=== PATIENT | male | born 1960 | race Caucasian/White ===

== ENCOUNTER 2017-08-15 10:06 | Emergency (ER) | payer SELFPAY ==
--- NOTE | 2017-08-15 10:26 | ER Document Report ---
ED Medical Screen (RME) - General TRAVEL OUTSIDE OF THE U.S. IN LAST 30 DAYS: No <YAMILKA REIS - Last Filed: 08/15/17 10:22> <RENEE BETANCOURT - Last Filed: 08/15/17 11:08> - General Chief Complaint: Abdominal Pain Stated Complaint: ABDOMINAL PAIN Time Seen by Provider: 08/15/17 10:18 Notes: Patient is a 57 year old male presenting to the emergency department for abdominal pain x5 days. Patient states he has not had a bowel movement or passed any gas x5 days. Patient states he has tried OTC laxatives with no relief. Patient also has had weakness and lack of appetite. Patient states he has been induing vomiting and after he vomits he feels better. Patient denies any fevers. Patient smokes and drinks EtOH. Patient denies any history of abdominal surgeries or history of blockage. Patient does not have a PCP. (YAMILKA REIS) - Related Data Allergies/Adverse Reactions: No Known Allergies Allergy (Unverified 08/15/17 10:11) Past Medical History - Social History Cigarette use (# per day): Yes Chew tobacco use (# tins/day): No Frequency of alcohol use: Occasional Drug Abuse: None Renal/ Medical History: Denies: Hx Peritoneal Dialysis Surgical Hx: Negative - Immunizations Hx Diphtheria, Pertussis, Tetanus Vaccination: No History of Influenza Vaccine for 08/2017 - 01/2018 Season: Refused <YAMILKA REIS - Last Filed: 08/15/17 10:22> Physical Exam <YAMILKA REIS - Last Filed: 08/15/17 10:22> <RENEE BETANCOURT - Last Filed: 08/15/17 11:08> - Vital signs Vitals: Temp Pulse Resp BP Pulse Ox 98.0 F 93 18 136/77 H 96 08/15/17 10:12 08/15/17 10:12 08/15/17 10:12 08/15/17 10:12 08/15/17 10:12 - Notes Notes: GENERAL: Alert. No acute distress. ABDOMEN: Distended, minimal tenderness to the right side. No guarding or rigidity. (YAMILKA REIS) Course - Laboratory Result Diagrams: 08/15/17 10:31 08/15/17 10:31 <RENEE BETANCOURT - Last Filed: 08/15/17 11:08> - Vital Signs Vital signs: Temp Pulse Resp BP Pulse Ox 98.0 F 93 18 136/77 H 96 08/15/17 10:12 08/15/17 10:12 08/15/17 10:12 08/15/17 10:12 08/15/17 10:12 Scribe Documentation - Scribe Written by Scribe:: Louis Schultz 08/15/17 10:26 acting as scribe for :: Naif <YAMILKA REIS - Last Filed: 08/15/17 10:22>
[2017-08-15] MEDS ORDERED: NORMAL SALINE 1000 ML 1,000 ML IV ONE (10:35)
--- NOTE | 2017-08-15 10:35 | ER Document Report ---
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 Normally has 1 BM per day. No hx abdominal surgeries, crohns, diverticulitis, colitis. No nausea, induced vomiting due to acid feeling. No blood or black in stools. No hx cancer. TRAVEL OUTSIDE OF THE [place] IN LAST 30 DAYS: No - Related Data Allergies/Adverse Reactions: No Known Allergies Allergy (Unverified 08/15/17 10:11) Home Medications: Current Home Medications No Home Medications 08/15/17 [History] Past Medical History - General Information source: Patient - Social History Smoking Status: Current Every Day Smoker Cigarette use (# per day): Yes Chew tobacco use (# tins/day): No Frequency of alcohol use: Heavy - at least 6 beers daily Drug Abuse: None Occupation: construction Lives with: Family Family History: Reviewed & Not Pertinent Renal/ Medical History: Denies: Hx Peritoneal Dialysis Surgical Hx: Negative - Immunizations Hx Diphtheria, Pertussis, Tetanus Vaccination: No Review of Systems - Review of Systems Constitutional: See HPI EENT: No symptoms reported Cardiovascular: No symptoms reported Respiratory: No symptoms reported Gastrointestinal: See HPI Genitourinary: No symptoms reported Male Genitourinary: No symptoms reported Musculoskeletal: No symptoms reported Skin: No symptoms reported Hematologic/Lymphatic: No symptoms reported Neurological/Psychological: No symptoms reported Physical Exam - Vital signs Vitals: Temp Pulse Resp BP Pulse Ox 98.0 F 93 18 136/77 H 96 08/15/17 10:12 08/15/17 10:12 08/15/17 10:12 08/15/17 10:12 08/15/17 10:12 Interpretation: Normal - General General appearance: Alert In distress: None Notes: pale - HEENT Head: Normocephalic, Atraumatic Eyes: Normal Conjunctiva: Normal Pupils: PERRL Pharynx: Normal Neck: Supple. No: Lymphadenopathy - Respiratory Respiratory status: No respiratory distress Chest status: Nontender Breath sounds: Normal Chest palpation: Normal - Cardiovascular Rhythm: Regular Heart sounds: Normal auscultation Murmur: No - Abdominal Inspection: Normal Distension: Distended - but soft, Tympanitic. No: Fluid wave, Distended bladder Bowel sounds: Normal Tenderness: Nontender Organomegaly: No organomegaly. No: Hepatomegaly, Splenomegaly - Back Back: Normal, Nontender. No: CVA tenderness - Extremities General upper extremity: Normal inspection, Nontender, Normal color, Normal ROM , Normal temperature General lower extremity: Normal inspection, Nontender, Normal color, Normal ROM , Normal temperature, Normal weight bearing. No: Ryan's sign - Neurological Neuro grossly intact: Yes Cognition: Normal Orientation: AAOx4 [place] Coma Scale Eye Opening: Spontaneous Lisa Coma Scale Verbal: Oriented [place] Coma Scale Motor: Obeys Commands [place] Coma Scale Total: 15 Speech: Normal Motor strength normal: LUE, RUE, LLE, RLE Sensory: Normal - Psychological Associated symptoms: Normal affect, Normal mood - Skin Skin Temperature: Warm Skin Moisture: Dry Skin Color: Normal Skin irregularity: negative: Rash Course - Re-evaluation Re-evalutation: 08/15/17 11:16 pt has no history of anemia or blood transfusion. Stool for hemmocult sent to the lab. Liver enzymes elevated. Macrocytic anemia suspect thiamine deficiency and liver disease other labs added. Consult Dr. Bull, 2 units PRBC to be given. 08/15/17 12:09 stool hem negative 08/15/17 18:50 pt still complaining of some abdominal bloating but no pain. explained at length the follow up that he needs to do , and no alcohol. - Vital Signs Vital signs: Temp Pulse Resp BP Pulse Ox 99.5 F 70 23 H 174/84 H 99 08/15/17 17:37 08/15/17 13:25 08/15/17 17:30 08/15/17 17:30 08/15/17 17:30 - Laboratory Result Diagrams: 08/15/17 17:46 08/15/17 10:31 Laboratory results interpreted by me: 08/15/17 08/15/17 08/15/17 10:30 10:30 10:31 WBC 11.8 H RBC 2.10 L Hgb 7.6 L Hct 22.0 L MCV 105 H MCH 36.2 H RDW 14.5 H Plt Count 148 L Monocytes % 17.8 H Absolute Monocytes 2.1 H Retic Count (auto) 4.68 H PT Sodium Chloride Iron 11.5 L Ferritin 909.00 H Direct Bilirubin AST ALT Alkaline Phosphatase Albumin Urine Protein Urine Urobilinogen Ur Leukocyte Esterase Crossmatch 08/15/17 08/15/17 08/15/17 10:31 10:31 11:04 WBC RBC Hgb Hct MCV MCH RDW Plt Count Monocytes % Absolute Monocytes Retic Count (auto) PT 15.7 H Sodium 133.5 L Chloride 97 L Iron Ferritin Direct Bilirubin 0.8 H AST 276 H ALT 134 H Alkaline Phosphatase 134 H Albumin 3.2 L Urine Protein 30 H Urine Urobilinogen 4.0 H Ur Leukocyte Esterase TRACE H Crossmatch 08/15/17 08/15/17 11:23 17:46 WBC 10.6 H RBC 2.79 L Hgb 9.7 L D Hct 27.3 L MCV 98 H D MCH 34.8 H RDW 19.3 H Plt Count 126 L Monocytes % Absolute Monocytes Retic Count (auto) PT Sodium Chloride Iron Ferritin Direct Bilirubin AST ALT Alkaline Phosphatase Albumin Urine Protein Urine Urobilinogen Ur Leukocyte Esterase Crossmatch See Detail Discharge - Discharge Clinical Impression: elevated liver enzymes, Alcohol abuse, abominal pain Anemia Qualifiers: Anemia type: iron deficiency Iron deficiency anemia type: other iron deficiency Qualified Code(s): D50.8 - Other iron deficiency anemias Condition: Good Disposition: HOME, SELF-CARE Instructions: Abdominal Pain ([facility]), Anemia ([facility]) Additional Instructions: multivitamin daily over the counter iron 325mg daily see the Independent Living Instructor Doctor to fully evaluate the anemia see the Internal Medicine dr. Hernandez for follow up appointment tomorrow, call for appointment this week. to fully evaluate your liver enzyme elevation and other testing that may need to be done. copy of labs given to you DO NOT DRINK ALCOHOL ANYMORE No tylenol your liver enzymes are elevated which shows liver disease Please complete the patient satisfaction survey if you get one, and return it.. If you do not receive a survey, then you can go to the [facility] website, [email or web address] and place your comments about your very good care. Thank you very much. It was a pleasure being your medical provider today. Referrals: DEDE BECK MD [ACTIVE STAFF] - Follow up in 3-5 days NOE HERNANDEZ MD [ACTIVE STAFF] - 10/09/17 (call for ER follow up apptointment )
--- NOTE | 2017-08-15 10:48 | RADIOLOGY REPORT (SQ) ---
EXAM DESCRIPTION: ACUTE ABDOMEN SERIES COMPLETED DATE/TIME: 08/15/2017 10:40 am REASON FOR STUDY: no BM, no gas x 5 days COMPARISON: None. NUMBER OF VIEWS: Three views. TECHNIQUE: Frontal chest, supine abdomen and upright/decubitus abdomen radiographic images acquired. LIMITATIONS: None. FINDINGS: CHEST: Lungs clear of infiltrates. Small left pleural effusion versus pleural thickening. FREE AIR: None. No abnormal gas collections. BOWEL GAS PATTERN: Nonobstructive pattern. No dilated loops or air fluid levels. CALCIFICATIONS: No suspicious calcifications. HARDWARE: None in the abdomen. SOFT TISSUES: No gross mass or suggestion of organomegaly. BONES: No acute fracture. No worrisome bone lesions. OTHER: No other significant finding. IMPRESSION: NO RADIOGRAPHIC EVIDENCE FOR ACUTE ABDOMINAL DISEASE. SMALL LEFT PLEURAL EFFUSION VERSUS PLEURAL THICKENING. CORRELATE WITH RESPIRATORY SYMPTOMS. TECHNICAL DOCUMENTATION: JOB ID: [id number] [employer]- All Rights Reserved
[2017-08-15 10:58] LABS: ABSOLUTE BASOPHILS # (AUTO) 0.1 10^3/uL (0.0-0.2); ABSOLUTE MONOCYTES (AUTO) 2.1 10^3/uL (0.1-1.4); ABSOLUTE NEUT (AUTO) 7.6 10^3/uL (1.7-8.2); BASOPHILS % (AUTO) 0.5 % (0-2); EOSINOPHILS % (AUTO) 0.2 % (0-6); HGB HCT DIFFERENCE 0.8; MEAN CORPUSCULAR HEMOGLOBIN 36.2 pg (27.0-33.4); MEAN CORPUSCULAR HGB CONC 34.6 g/dL (32.0-36.0); MEAN CORPUSCULAR VOLUME 105 fl (80-97); MONOCYTES % (AUTO) 17.8 % (3-13); RED CELL DISTRIBUTION WIDTH 14.5 % (11.5-14.0); SEGMENTED NEUTROPHILS % (AUTO) 64.5 % (42-78); WHITE BLOOD COUNT 11.8 10^3/uL (4.0-10.5)
[2017-08-15 11:05] LABS: ALANINE AMINOTRANSFERASE 134 U/L (21-72); ALBUMIN 3.2 g/dL (3.5-5.0); ALKALINE PHOSPHATASE 134 U/L (38-126); ANION GAP 11 (5-19); ASPARTATE AMINO TRANSFERASE 276 U/L (17-59); BILIRUBIN,DIRECT 0.8 mg/dL (0.0-0.4); BILIRUBIN,TOTAL 1.3 mg/dL (0.2-1.3); BLOOD UREA NITROGEN 16 mg/dL (7-20); CALCIUM 9.8 mg/dL (8.4-10.2); CARBON DIOXIDE 26 mmol/L (22-30); CHLORIDE 97 mmol/L (98-107); CREATININE RESULT 1.24 mg/dL (0.52-1.25); GLUCOSE 110 mg/dL (75-110); LIPASE 63.1 U/L (23-300); POTASSIUM 4.4 mmol/L (3.6-5.0); SODIUM 133.5 mmol/L (137-145)
[2017-08-15 11:11] LABS: HEMOGLOBIN 7.6 g/dL (13.5-17.0)
[2017-08-15 11:19] LABS: APPEARANCE,URINE CLOUDY; BILIRUBIN,URINE NEGATIVE (NEGATIVE); GLUCOSE, URINE NEGATIVE (NEGATIVE); KETONES,URINE NEGATIVE (NEGATIVE); LEUKOCYTE ESTERASE,URINE TRACE (NEGATIVE); NITRITE,URINE NEGATIVE (NEGATIVE); PROTEIN,URINE 30 mg/dL (NEGATIVE); URINE SPECIFIC GRAVITY 1.018
[2017-08-15] MEDS ORDERED: THIAMINE HCL 100 MG TABLET PO ONE (11:21)
[2017-08-15] MEDS ORDERED: MULTIVITAMIN TABLET PO ONE (11:22)
[2017-08-15] MEDS ORDERED: NORMAL SALINE 250 ML IV PRN ×2 (11:24)
[2017-08-15 11:43] LABS: PROTHROMBIN TIME 15.7 SEC (11.4-15.4)
[2017-08-15 11:44] LABS: PARTIAL THROMBOPLASTIN TIME 28.5 SEC (23.5-35.8)
[2017-08-15 13:02] LABS: ALCOHOL < 10 mg/dL (NONE DETECTED)
[2017-08-15 18:08] LABS: HEMATOCRIT 27.3 % (37.9-51.0); HGB HCT DIFFERENCE 1.8; MEAN CORPUSCULAR HEMOGLOBIN 34.8 pg (27.0-33.4); MEAN CORPUSCULAR HGB CONC 35.6 g/dL (32.0-36.0); RED BLOOD COUNT 2.79 10^6/uL (4.35-5.55); RED CELL DISTRIBUTION WIDTH 19.3 % (11.5-14.0); WHITE BLOOD COUNT 10.6 10^3/uL (4.0-10.5)
[2017-08-15 18:09] LABS: HEMOGLOBIN 9.7 g/dL (13.5-17.0); MEAN CORPUSCULAR VOLUME 98 fl (80-97)
[2017-08-15 18:47] VITALS: BP 154/84
== END 2017-08-15 18:54 | disposition home or self-care (01) ==
LOC: ER 10:06
DX: R74.8 Abnormal levels of other serum enzymes (principal); F10.10 Alcohol abuse, uncomplicated; R10.9 Unspecified abdominal pain; D50.8 Other iron deficiency anemias; R14.0 Abdominal distension (gaseous); F17.210 Nicotine dependence, cigarettes, uncomplicated
CPT/HCPCS: 99284; 96360; 86900; 86901; 36415; 36430; 86850; 80307; 82607; 82728; 82746; 83540; 83550; 83690; 85025; 85027; 85610; 85730; 82272; 85045; 80053; 81001; 84466; 86920; 74022; P9016; J7030

== ENCOUNTER → 2017-09-27 | Outpatient (CLI) | payer OTHER ==
--- NOTE | 2017-09-27 14:43 | RADIOLOGY REPORT (SQ) ---
EXAM DESCRIPTION: CT ABD/PELVIS WITH IV ORAL COMPLETED DATE/TIME: 09/27/2017 2:25 pm REASON FOR STUDY: ABD PAIN (R10.9) R10.9 UNSPECIFIED ABDOMINAL PAIN COMPARISON: Abdominal series 08/15/2017 TECHNIQUE: CT scan of the abdomen and pelvis performed using helical scanning technique with dynamic intravenous contrast injection. Patient drank oral contrast. Images reviewed with lung, soft tissue, and bone windows. Reconstructed coronal and sagittal MPR images reviewed. Delayed images for evaluation of the urinary system also ac quired. All images stored on PACS. All CT scanners at this facility use dose modulation, iterative reconstruction, and/or weight based d osing when appropriate to reduce radiation dose to as low as reasonably achievable (ALARA). [facility]: Dose Right [facility]: CareDose [facility]: Dose Right [facility]: Teradose 4D [facility]: [employer] CONTRAST TYPE AND DOSE: contrast/concentration: Isovue 370.00 mg/ml; Total Contrast Delivered: 83.0 ml; Total Saline Delivered: 68.1 ml RENAL FUNCTION: Creatinine 1.3 RADIATION DOSE: Up-to-date CT equipment and radiation dose reduction techniques were employed. CTDIv ol: 8.0 - 9.2 mGy. DLP: 914 mGy-cm.. LIMITATIONS: None. FINDINGS: LOWER CHEST: Small bilateral pleural effusions are present. LIVER: Right lobe liver is diffusely abnormal, small and nodular in contour. In the sub- diaphragmat ic surface right lobe liver, an 8.4 cm mass is suspected worrisome for primary hepatocellular neoplas m. There is recanalization of the umbilical vein, and multiple varices in the left upper quadrant an d along the distal esophagus from portal hypertension. Normal contrast enhancement of the main zeeshan l vein and hepatic veins. SPLEEN: 12 cm in length. No focal lesions PANCREAS: No masses. No significant calcifications. No adjacent inflammation or peripancreatic fluid collections. Pancreatic duct not dilated. GALLBLADDER: Contracted around a 2 cm gallstone. ADRENAL GLANDS: No significant masses or asymmetry. RIGHT KIDNEY AND URETER: No solid masses. No significant calcifications. No hydronephrosis or hyd roureter. LEFT KIDNEY AND URETER: No solid masses. No significant calcifications. No hydronephrosis or hydr oureter. AORTA AND VESSELS: No aneurysm. No dissection. Renal arteries, SMA, celiac without stenosis. RETROPERITONEUM: No retroperitoneal adenopathy, hemorrhage or masses. BOWEL AND PERITONEAL CAVITY: No masses or inflammatory changes. Patient drank oral contrast, no pam l obstruction. Massive amount of ascites. APPENDIX: Normal. PELVIS: Ascites in the pelvis. No adenopathy. No masses ABDOMINAL WALL: No masses. No hernias. BONES: No significant or acute findings. OTHER: No other significant finding. IMPRESSION: Cirrhosis of the liver with 8 cm right lobe liver subdiaphragmatic surface mass worrisom e for hepatocellular neoplasm. Portal hypertension recannulized umbilical vein, esophageal varices and massive ascites These results were discussed with Dr. Simpson, 1430 hours, 09/27/2017 TECHNICAL DOCUMENTATION: JOB ID: [id number] Quality ID # [id number]: Final reports with documentation of one or more dose reduction techniques (e.g., Au tomated exposure control, adjustment of the mA and/or kV according to patient size, use of iterative reconstruction technique) 2010 [employer]- All Rights Reserved
== END ==
LOC: RAD 13:32
PROVIDERS: ATTEND Internal Medicine
DX: R10.9 Unspecified abdominal pain (principal)
CPT/HCPCS: 74177; 82565

== ENCOUNTER 2017-09-29 10:59 | Day surgery (SDC) | payer OTHER ==
[2017-09-29 11:53] LABS: HEMOGLOBIN 12.8 g/dL (13.5-17.0); HGB HCT DIFFERENCE 1.4; MEAN CORPUSCULAR HEMOGLOBIN 35.4 pg (27.0-33.4); MEAN CORPUSCULAR HGB CONC 34.7 g/dL (32.0-36.0); MEAN CORPUSCULAR VOLUME 102 fl (80-97); RED BLOOD COUNT 3.63 10^6/uL (4.35-5.55); RED CELL DISTRIBUTION WIDTH 15.1 % (11.5-14.0)
[2017-09-29 12:07] LABS: PROTHROMBIN TIME 14.3 SEC (11.4-15.4)
[2017-09-29 12:08] LABS: PARTIAL THROMBOPLASTIN TIME 27.7 SEC (23.5-35.8)
[2017-09-29 12:28] LABS: ANION GAP 11 (5-19); BLOOD UREA NITROGEN 21 mg/dL (7-20); CALCIUM 9.9 mg/dL (8.4-10.2); CARBON DIOXIDE 29 mmol/L (22-30); CHLORIDE 101 mmol/L (98-107); CREATININE RESULT 1.28 mg/dL (0.52-1.25); GLUCOSE 96 mg/dL (75-110); POTASSIUM 4.1 mmol/L (3.6-5.0); SODIUM 140.7 mmol/L (137-145)
--- NOTE | 2017-09-29 14:37 | RADIOLOGY REPORT (SQ) ---
EXAM DESCRIPTION: U/S ABD PARACENTESIS COMPLETED DATE/TIME: 09/29/2017 2:25 pm REASON FOR STUDY: ASCITES COMPARISON 09/27/2017 LIMITATIONS: None. PROCEDURE: After obtaining informed consent, the patient was brought to the ultrasound suite. The p rocedure was performed with the patient on a gurney. Ultrasound was used to identify a prominent poc ket of ascites in the right lower quadrant. An appropriate access site was selected. The patient wa s prepped and draped in usual sterile fashion. The access site was anesthetized with 5.5 mL 1% lido glenny. A [id number] needle was advanced into the fluid. After aspiration of fluid the needle, the catheter was advanced off the needle into the fluid. A total of 6,000 mL of clear yellow fluid w as removed. The patient tolerated the procedure well left the department in satisfactory condition. Ascites fluid was sent for cell count, albumin, g stain and culture IMPRESSION: Successful ultrasound-guided diagnostic and therapeutic paracentesis COMMENT: Patient medication list reviewed: Yes- Quality ID# [id number]:Eligible professional attests to doc umenting in the medical record they obtained, updated, or reviewed the patient's current medications. Quality ID #76: The patient was prepped and draped using maximum sterile barrier technique including cap, mask, sterile gown, sterile gloves, a large sterile sheet, hand hygiene, and 2% Chlorhexidine fo r cutaneous antisepsis. When ultrasound is used, sterile ultrasound techniques are followed requiring sterile gel and sterile probes. Quality ID #145: Final reports for procedures using fluoroscopy that document radiation exposure magui parvez, or exposure time and number of fluorographic images (if radiation exposure indices are not avail able) TECHNICAL DOCUMENTATION: JOB ID: [id number] [employer]- All Rights Reserved
[2017-09-29 15:03] LABS: FLUID APPEARANCE TURBID; FLUID TYPE PLEURAL; STAIN REACTIVITY CHECK ACCEPTABLE
[2017-09-29 15:04] LABS: FLUID RBC AVERAGE 50.5; FLUID RBC DILUENT USED SALINE; FLUID RBC DILUTION FACTOR 20; FLUID RBC SIDE 1 55; FLUID RBC SIDE 2 46; TOTAL RBC SQUARES COUNTED FLD 5
[2017-09-29 19:50] VITALS: BP 144/86
== END 2017-09-29 15:45 | disposition home or self-care (01) ==
LOC: RAD 10:59
PROVIDERS: ATTEND Internal Medicine
PROC: 0W9G3ZZ Drainage of Peritoneal Cavity, Percutaneous Approach (ICD-10-PCS; principal; 2017-09-29)
DX: R18.8 Other ascites (principal)
CPT/HCPCS: 36415; 49083; 80048; 82042; 85027; 85610; 85730; 87070; 87075; 87205; 88305; 89050

== ENCOUNTER 2017-10-02 13:17 | Emergency (ER) | payer OTHER ==
[2017-10-02] MEDS ORDERED: LIDOCAINE 1% INJ-PF (10 MG/ML) 30 ML SDV INJ ONE (13:48)
--- NOTE | 2017-10-02 13:48 | ER Document Report ---
ED Medical Screen (RME) - General Chief Complaint: Abdominal Problem Stated Complaint: ABDOMINAL PAIN Time Seen by Provider: 10/02/17 13:47 TRAVEL OUTSIDE OF THE [place]. IN LAST 30 DAYS: No - HPI Notes: 10/02/17 13:47 Leaking paracentesis site - Related Data Allergies/Adverse Reactions: No Known Allergies Allergy (Verified 10/02/17 13:22) Past Medical History - Past Medical History Cardiac Medical History: Denies: Hx Coronary Artery Disease, Hx Heart Attack, Hx Hypertension Pulmonary Medical History: Denies: Hx Asthma, Hx Bronchitis, Hx COPD, Hx Pneumonia Neurological Medical History: Denies: Hx Cerebrovascular Accident, Hx Seizures Renal/ Medical History: Denies: Hx Peritoneal Dialysis Musculoskeltal Medical History: Denies Hx Arthritis - Immunizations Hx Diphtheria, Pertussis, Tetanus Vaccination: No History of Influenza Vaccine for 08/2017 - 01/2018 Season: No Review of Systems - Review of Systems Notes: Leaking paracentesis site Physical Exam - Vital signs Vitals: Temp Pulse Resp BP Pulse Ox 97.3 F 76 16 138/87 H 98 10/02/17 13:20 10/02/17 13:20 10/02/17 13:20 10/02/17 13:20 10/02/17 13:20 - Abdominal Notes: Leaking paracentesis site Course - Vital Signs Vital signs: Temp Pulse Resp BP Pulse Ox 97.3 F 76 16 138/87 H 98 10/02/17 13:20 10/02/17 13:20 10/02/17 13:20 10/02/17 13:20 10/02/17 13:20
--- NOTE | 2017-10-02 15:06 | ER Document Report ---
ED General - General Chief Complaint: Abdominal Problem Stated Complaint: ABDOMINAL PAIN Time Seen by Provider: 10/02/17 13:47 Notes: 57-year-old male history of cirrhosis with frequent ascites issues had paracentesis done on Wednesday. Now leaking. Has been leaking for 2 days. Procedure was done at [facility] in the radiology department. Denies any fever, chills, sweats. Denies any abdominal pain. Soaking through all of his dressings on a regular basis. No active bleeding TRAVEL OUTSIDE OF THE [place] IN LAST 30 DAYS: No - HPI Onset: Yesterday Severity: None Associated symptoms: None Exacerbated by: Denies - Related Data Allergies/Adverse Reactions: No Known Allergies Allergy (Verified 10/02/17 13:22) Past Medical History - General Information source: Patient - Social History Smoking Status: Current Every Day Smoker Chew tobacco use (# tins/day): No Frequency of alcohol use: None Drug Abuse: None Lives with: Family Family History: Reviewed & Not Pertinent Patient has suicidal ideation: No Patient has homicidal ideation: No - Past Medical History Cardiac Medical History: Denies: Hx Coronary Artery Disease, Hx Heart Attack, Hx Hypertension Pulmonary Medical History: Denies: Hx Asthma, Hx Bronchitis, Hx COPD, Hx Pneumonia Neurological Medical History: Denies: Hx Cerebrovascular Accident, Hx Seizures Renal/ Medical History: Denies: Hx Peritoneal Dialysis Musculoskeltal Medical History: Denies Hx Arthritis - Immunizations Hx Diphtheria, Pertussis, Tetanus Vaccination: No Review of Systems - Review of Systems Constitutional: No symptoms reported Cardiovascular: No symptoms reported Respiratory: No symptoms reported Gastrointestinal: See HPI Skin: No symptoms reported Hematologic/Lymphatic: No symptoms reported Physical Exam - Vital signs Vitals: Temp Pulse Resp BP Pulse Ox 97.3 F 76 16 138/87 H 98 10/02/17 13:20 10/02/17 13:20 10/02/17 13:20 10/02/17 13:20 10/02/17 13:20 Interpretation: Normal - General General appearance: Appears well, Alert - HEENT Head: Normocephalic, Atraumatic Eyes: Normal Pupils: PERRL - Respiratory Respiratory status: No respiratory distress Chest status: Nontender Breath sounds: Normal Chest palpation: Normal - Cardiovascular Rhythm: Regular Heart sounds: Normal auscultation Murmur: No - Abdominal Inspection: Normal Distension: Distended Bowel sounds: Normal Tenderness: Nontender Organomegaly: No organomegaly Notes: Distended ascitic abdomen with a small 0.3 cm incision on the right mid abdomen which is leaking clear ascites fluid. No signs of cellulitis. Nontender abdomen. - Back Back: Normal, Nontender - Extremities General upper extremity: Normal inspection, Nontender, Normal color, Normal ROM , Normal temperature General lower extremity: Normal inspection, Nontender, Normal color, Normal ROM , Normal temperature, Normal weight bearing. No: Ryan's sign - Neurological Neuro grossly intact: Yes Cognition: Normal Orientation: AAOx4 Lisa Coma Scale Eye Opening: Spontaneous Lisa Coma Scale Verbal: Oriented [place] Coma Scale Motor: Obeys Commands [place] Coma Scale Total: 15 Speech: Normal Motor strength normal: LUE, RUE, LLE, RLE Sensory: Normal - Psychological Associated symptoms: Normal affect, Normal mood - Skin Skin Temperature: Warm Skin Moisture: Dry Skin Color: Normal Course - Re-evaluation Re-evalutation: 10/02/17 15:04 2 small simple interrupted sutures placed in a crossing fashion to close the leaking/draining lesion. Patient advised to stay on his back as much as possible over the next 12 hours. Lie on the left side so that the wound is upright which would decrease the chances of it leaking. Patient verbalized understanding of instructions. Advised him to return in 5 days for removal. - Vital Signs Vital signs: Temp Pulse Resp BP Pulse Ox 97.3 F 76 16 138/87 H 98 10/02/17 13:20 10/02/17 13:20 10/02/17 13:20 10/02/17 13:20 10/02/17 13:20 Procedures - Laceration/Wound Repair Right Mid- Abdomen Wound length (cm): 0.3 Wound's Depth, Shape: Superficial Laceration pre-procedure: Sterile drapes applied, Shur-Clens applied Anesthetic type: 1% Lidocaine Volume Anesthetic (mLs): 2 Wound explored: Clean Wound Repaired With: Sutures Suture Size/Type: 4:0, Ethilon Number of Sutures: 2 Layer Closure?: No Post-procedure wound care: Sterile dressing applied Discharge - Discharge Clinical Impression: Laceration Condition: Good Disposition: HOME, SELF-CARE Instructions: Laceration Care ([facility]) Additional Instructions: Return in 5-7 days for suture removal.
[2017-10-02 15:41] VITALS: BP 149/80
== END 2017-10-02 15:40 | disposition home or self-care (01) ==
LOC: ER 13:17
PROC: 0HQ7XZZ Repair Abdomen Skin, External Approach (ICD-10-PCS; principal; 2017-10-02)
DX: L76.82 Other postprocedural complications of skin and subcutaneous tissue (principal); R10.9 Unspecified abdominal pain; Y84.4 Aspiration of fluid as the cause of abnormal reaction of the patient, or of later complication, without mention of misadventure at the time of the procedure; F17.200 Nicotine dependence, unspecified, uncomplicated
CPT/HCPCS: 99283; 12001; J3490

== ENCOUNTER 2017-10-10 15:57 | Emergency (ER) | payer OTHER ==
--- NOTE | 2017-10-10 16:51 | ER Document Report ---
ED Suture/Wound Recheck - General Chief Complaint: Suture Removal Stated Complaint: SUTURES REMOVAL Time Seen by Provider: 10/10/17 16:21 Mode of Arrival: Ambulatory Information source: Patient Notes: 57-year-old male presents to ED for suture removal to his left lower abdomen. Patient states he was seen at radiology for paracentesis due to ascites from his cirrhosis and they removed 6 L from his abdomen. He states 2 days later the drain site opened back up and started leaking and he came to the emergency room for sutures. The sutures are well healed and there is no signs of inflammation redness or drainage at the site at this time. He does have a very large taut abdomen. Patient states that when he had the last paracentesis his abdomen was actually much larger than it is today. He states he has a history of cirrhosis with ascites. TRAVEL OUTSIDE OF THE [place] IN LAST 30 DAYS: No - HPI Previous ED treatment: Closure of leaking drain site Quality of pain: Other - Abdomen taunt, and no pain at suture site Severity: Mild Context: Other - Drain for ascites started leaking was sutured shut Symptoms since procedure: No complaints Exacerbated by: Denies Relieved by: Denies - Related Data Allergies/Adverse Reactions: No Known Allergies Allergy (Verified 10/02/17 13:22) Past Medical History - General Information source: Patient, Relative - Social History Smoking Status: Current Every Day Smoker Cigarette use (# per day): Yes Smoking Education Provided: Yes - Less than 1 minute Frequency of alcohol use: None Drug Abuse: None Occupation: not able to work Lives with: Family Family History: Reviewed & Not Pertinent Patient has suicidal ideation: No Patient has homicidal ideation: No - Past Medical History Cardiac Medical History: Reports: None Pulmonary Medical History: Reports: None EENT Medical History: Reports: None Neurological Medical History: Reports: None Endocrine Medical History: Reports: None Renal/ Medical History: Reports: None Malignancy Medical History: Reports None GI Medical History: Reports: Hx Cirrhosis, Other - Ascites Musculoskeltal Medical History: Reports None Skin Medical History: Reports None Psychiatric Medical History: Reports: None Traumatic Medical History: Reports: None Past Surgical History: Reports: Other - Paracentesis due to ascites from cirrhosis - Immunizations Hx Diphtheria, Pertussis, Tetanus Vaccination: No Review of Systems - Review of Systems Constitutional: No symptoms reported EENT: No symptoms reported Cardiovascular: No symptoms reported Respiratory: No symptoms reported Gastrointestinal: Abdomen distended, Constipation Genitourinary: No symptoms reported Male Genitourinary: No symptoms reported Musculoskeletal: No symptoms reported Skin: Other - Wound well-healed no drainage no redness no inflammation Hematologic/Lymphatic: No symptoms reported Neurological/Psychological: No symptoms reported -: Yes All other systems reviewed and negative Physical Exam - Vital signs Vitals: Pulse BP Pulse Ox 93 135/88 H 99 10/10/17 16:03 10/10/17 16:03 10/10/17 16:03 Interpretation: Normal - General General appearance: Appears well, Alert - HEENT Head: Normocephalic, Atraumatic Eyes: Normal Pupils: PERRL - Respiratory Respiratory status: No respiratory distress Chest status: Nontender Breath sounds: Normal Chest palpation: Normal - Cardiovascular Rhythm: Regular Heart sounds: Normal auscultation Murmur: No - Abdominal Inspection: Normal Distension: Distended Bowel sounds: Normal Tenderness: Tender - Back Back: Normal, Nontender - Extremities General upper extremity: Normal inspection, Nontender, Normal color, Normal ROM , Normal temperature General lower extremity: Normal inspection, Nontender, Normal color, Normal ROM , Normal temperature, Normal weight bearing. No: Ryan's sign - Neurological Neuro grossly intact: Yes Cognition: Normal Orientation: AAOx4 [place] Coma Scale Eye Opening: Spontaneous [place] Coma Scale Verbal: Oriented [place] Coma Scale Motor: Obeys Commands Lisa Coma Scale Total: 15 Speech: Normal Motor strength normal: LUE, RUE, LLE, RLE Sensory: Normal - Psychological Associated symptoms: Normal affect, Normal mood - Skin Skin Temperature: Warm Skin Moisture: Dry Skin Color: Normal Skin irregularity: other - 3 sutures to the right lower abdomen removed, no redness no inflammation no leaking. Skin well approximated. Sutures removed and patient was discharged home with instructions to follow-up with [facility] by telephone tomorrow to schedule follow-up appointment for his ascites. Location of irregularity: Abdomen Course - Re-evaluation Re-evalutation: 10/10/17 17:04 Sutures removed from lower abdomen Band-Aid applied with 2 x 2's. 10/10/17 17:[address] Garcia concerning the appearance of his abdomen. He stated that if the patient was not here for his abdomen but here for the suture removal that the patient follow-up with his primary doctor tomorrow. Patient was instructed to call Dr. lb fiore in the morning to schedule follow-up appointment. - Vital Signs Vital signs: Temp Pulse Resp BP Pulse Ox 97.3 F 76 138/87 H 100 10/10/17 17:03 10/10/17 17:03 10/10/17 17:03 10/10/17 17:03 Discharge - Discharge Clinical Impression: Suture removal right abdomen Condition: Stable Disposition: HOME, SELF-CARE Instructions: Suture Removal Additional Instructions: Removed his sutures from the abdomen today from your last paracentesis. Your abdomen is very taunt in full. You need to follow-up with Dr. Beck by telephone tomorrow and schedule an appointment as soon as possible. He also states you have some constipation but have had a bowel movement today. Please be sure to call [facility] in the morning and schedule a follow-up appointment to possibly have your abdomen retrained again. When you follow-up with [facility] please let him know that you needed sutures after your last procedure. FOLLOW-UP CARE: If you have been referred to a physician for follow-up care, call the physician s office for an appointment as you were instructed or within the next two days. If you experience worsening or a significant change in your symptoms, notify the physician immediately or return to the Emergency Department at any time for re-evaluation. Forms: Elevated Blood Pressure, Smoking Cessation Education Referrals: DEDE BECK MD [ACTIVE STAFF] - Follow up as needed
[2017-10-10 17:05] VITALS: BP 138/87
== END 2017-10-10 17:05 | disposition home or self-care (01) ==
LOC: ER 15:57
DX: Z48.02 Encounter for removal of sutures (principal)

== ENCOUNTER 2017-10-20 07:40 | Day surgery (SDC) | payer OTHER ==
[2017-10-20 08:17] LABS: HEMATOCRIT 38.5 % (37.9-51.0); HEMOGLOBIN 13.2 g/dL (13.5-17.0); HGB HCT DIFFERENCE 1.1; MEAN CORPUSCULAR HEMOGLOBIN 35.2 pg (27.0-33.4); MEAN CORPUSCULAR HGB CONC 34.2 g/dL (32.0-36.0); MEAN CORPUSCULAR VOLUME 103 fl (80-97); RED BLOOD COUNT 3.75 10^6/uL (4.35-5.55); RED CELL DISTRIBUTION WIDTH 14.5 % (11.5-14.0); WHITE BLOOD COUNT 6.5 10^3/uL (4.0-10.5)
[2017-10-20 08:22] LABS: PROTHROMBIN TIME 14.7 SEC (11.4-15.4)
[2017-10-20 08:23] LABS: PARTIAL THROMBOPLASTIN TIME 30.4 SEC (23.5-35.8)
[2017-10-20 08:29] LABS: BLOOD UREA NITROGEN 22 mg/dL (7-20); CREATININE RESULT 1.45 mg/dL (0.52-1.25)
[2017-10-20] MEDS ORDERED: ALBUMIN HUMAN 300 ML IV PRN (11:19)
--- NOTE | 2017-10-20 13:31 | RADIOLOGY REPORT (SQ) ---
EXAM DESCRIPTION: U/S ABD PARACENTESIS COMPLETED DATE/TIME: 10/20/2017 10:59 am REASON FOR STUDY: ASCITES COMPARISON CT abdomen pelvis 09/27/2017 Paracentesis 09/29/2017 LIMITATIONS: None. PROCEDURE: After obtaining informed consent, the patient was brought to the ultrasound suite. The p rocedure was performed with the patient on a gurney. Ultrasound was used to identify a prominent poc ket of ascites in the left lower quadrant. An appropriate access site was selected. The patient was prepped and draped in usual sterile fashion. The access site was anesthetized with 7 mL 1% lidocai ne. A Uqdr-S-Ccddsfzw needle was advanced into the fluid. After aspiration of fluid the needle, the catheter was advanced off the needle into the fluid. A total of 10,000 mL of cloudy straw-colored f luid was removed. The patient tolerated the procedure well left the department in satisfactory condit ion. Patient received IV albumin infusion after the paracentesis. No specimens were sent to the lab IMPRESSION: Successful ultrasound-guided therapeutic paracentesis, with postprocedure albumin infusi on COMMENT: Patient medication list reviewed: Yes- Quality ID# [id number]:Eligible professional attests to doc umenting in the medical record they obtained, updated, or reviewed the patient's current medications. Quality ID #[id number]: The patient was prepped and draped using maximum sterile barrier technique including cap, mask, sterile gown, sterile gloves, a large sterile sheet, hand hygiene, and 2% Chlorhexidine fo r cutaneous antisepsis. When ultrasound is used, sterile ultrasound techniques are followed requiring sterile gel and sterile probes. Quality ID #[id number]: Final reports for procedures using fluoroscopy that document radiation exposure magui parvez, or exposure time and number of fluorographic images (if radiation exposure indices are not avail able) TECHNICAL DOCUMENTATION: JOB ID: [id number] [employer]- All Rights Reserved
[2017-10-20 15:33] VITALS: BP 128/80
== END 2017-10-20 15:24 | disposition home or self-care (01) ==
LOC: RAD 07:40
PROVIDERS: ATTEND Internal Medicine
PROC: 0W9G3ZZ Drainage of Peritoneal Cavity, Percutaneous Approach (ICD-10-PCS; principal; 2017-10-20)
DX: C22.0 Liver cell carcinoma (principal); K74.60 Unspecified cirrhosis of liver; B19.20 Unspecified viral hepatitis C without hepatic coma
CPT/HCPCS: 36415; 84520; 82565; 85027; 85610; 85730; 49083; P9047

== ENCOUNTER → 2017-10-22 | Outpatient (CLI) | payer OTHER ==
--- NOTE | 2017-10-23 20:40 | RADIOLOGY REPORT (SQ) ---
EXAM DESCRIPTION: MRI ABDOMEN COMBO COMPLETED DATE/TIME: 10/22/2017 9:42 pm REASON FOR STUDY: Liver cell carcinoma C22.0 LIVER CELL CARCINOMA COMPARISON: 09/27/2017 CT. TECHNIQUE: T1, T1 in and out of phase, T2 fat sat, T1 post gadolinium sequences with attention to th e liver. CONTRAST TYPE AND DOSE: 20 mL Prohance. RENAL FUNCTION: GFR 50 LIMITATIONS: None. FINDINGS: LIVER: Nodular appearance. Pre contrast imaging shows heterogeneous slightly hyperintense T2 signal throughout the dome of the liver, some of which is in the mass noted on CT. Superior port ion of this masslike area is more nodular compared to the adjacent parenchyma. T2 sequences in parti cular suggests that the area it is larger than measured on CT. Probably nearly 12 cm maximal transve rse dimension involving a large portion of the right hepatic lobe and a portion of the medial segment left hepatic lobe. Heterogeneous enhancement with some washout throughout this area. Several other right hepatic lobe lesions may also be present (At least 3, the largest of which is inferiorly and m easures 2.9 cm maximally). Most of these also show increased T2 signal with variable enhancement. A t least 1 1.3 cm lesion in the lateral segment left hepatic lobe, otherwise much less heterogeneous i n appearance compared to the right lobe. These areas are all marked as morales images in PACS for future review. SPLEEN: Mildly heterogeneous enhancement. No dominant mass. Relatively normal size. PANCREAS: No masses. No adjacent inflammation or peripancreatic fluid collections. Pancreatic duct no t dilated. GALLBLADDER: No masses. No stones. No gallbladder wall thickening or pericholecystic fluid. ADRENAL GLANDS: No significant masses or asymmetry. RIGHT KIDNEY AND URETER: No masses. No hydronephrosis. LEFT KIDNEY AND URETER: No masses. No hydronephrosis. AORTA AND VESSELS: Normal caliber aorta. Portal and hepatic veins look grossly patent. RETROPERITONEUM: No retroperitoneal adenopathy, hemorrhage or masses. BOWEL: No visualized masses. No inflammation. No significant dilatation. ABDOMINAL WALL AND PERITONEUM: Large volume ascites. No abdominal wall mass. Small to moderate bila teral pleural effusions. BONES: No acute or significant findings. OTHER: No other significant finding. IMPRESSION: 1. Extensively abnormal cirrhotic liver. A large portion of the right hepatic lobe appe ars to be involved with a heterogeneous mass with variable enhancement. This extends to involve the left hepatic lobe medial segment as well. Several additional lesions are also noted, right lobe and at least 1 in the lateral segment left lobe. Large volume ascites. TECHNICAL DOCUMENTATION: JOB ID: [id number] [employer]- All Rights Reserved
== END ==
LOC: RAD 19:46
PROVIDERS: ATTEND Internal Medicine
DX: C22.0 Liver cell carcinoma (principal); R18.8 Other ascites
CPT/HCPCS: 74183

== ENCOUNTER 2017-11-16 07:30 | Day surgery (SDC) | payer OTHER ==
[2017-11-16 08:40] LABS: HEMOGLOBIN 12.1 g/dL (13.5-17.0); MEAN CORPUSCULAR HEMOGLOBIN 34.3 pg (27.0-33.4); MEAN CORPUSCULAR HGB CONC 33.6 g/dL (32.0-36.0); MEAN CORPUSCULAR VOLUME 102 fl (80-97); PLATELET COUNT 239 10^3/uL (150-450); RED BLOOD COUNT 3.53 10^6/uL (4.35-5.55); RED CELL DISTRIBUTION WIDTH 14.5 % (11.5-14.0); WHITE BLOOD COUNT 6.1 10^3/uL (4.0-10.5)
[2017-11-16 08:44] LABS: INTERNATIONAL RATION (INR) 1.03; PROTHROMBIN TIME 14.2 SEC (11.4-15.4)
[2017-11-16 08:45] LABS: PARTIAL THROMBOPLASTIN TIME 29.2 SEC (23.5-35.8)
[2017-11-16 08:52] LABS: BLOOD UREA NITROGEN 46 mg/dL (7-20)
[2017-11-16] MEDS ORDERED: ALBUMIN HUMAN 100 ML IV PRN (11:28)
--- NOTE | 2017-11-16 13:14 | RADIOLOGY REPORT (SQ) ---
EXAM DESCRIPTION: U/S ABD PARACENTESIS COMPLETED DATE/TIME: 11/16/2017 12:08 pm REASON FOR STUDY: ASCITES COMPARISON MRI abdomen 10/22/2017 Paracentesis 10/20/2017 LIMITATIONS: None. PROCEDURE: After obtaining informed consent, the patient was brought to the ultrasound suite. The p rocedure was performed with the patient on a gurney. Ultrasound was used to identify a prominent poc ket of ascites in the right lower quadrant. An appropriate access site was selected. The patient wa s prepped and draped in usual sterile fashion. The access site was anesthetized with 5.5 mL 1% lido glenny. A Ftmc-U-Xasavwuh needle was advanced into the fluid. After aspiration of fluid the needle, the catheter was advanced off the needle into the fluid. A total of 10,000 mL of clear straw colored fluid was removed. The patient tolerated the procedure well left the department in satisfactory cond ition. IMPRESSION: Successful ultrasound-guided therapeutic only paracentesis COMMENT: Patient medication list reviewed: Yes- Quality ID# [id number]:Eligible professional attests to doc umenting in the medical record they obtained, updated, or reviewed the patient's current medications. Quality ID #76: The patient was prepped and draped using maximum sterile barrier technique including cap, mask, sterile gown, sterile gloves, a large sterile sheet, hand hygiene, and 2% Chlorhexidine fo r cutaneous antisepsis. When ultrasound is used, sterile ultrasound techniques are followed requiring sterile gel and sterile probes. Quality ID #[id number]: Final reports for procedures using fluoroscopy that document radiation exposure magui parvez, or exposure time and number of fluorographic images (if radiation exposure indices are not avail able) TECHNICAL DOCUMENTATION: JOB ID: [id number] [employer]- All Rights Reserved
[2017-11-16 13:51] VITALS: BP 133/68
== END 2017-11-16 13:30 | disposition home or self-care (01) ==
LOC: RAD 07:30
PROVIDERS: ATTEND Internal Medicine
PROC: 0W9F3ZZ Drainage of Abdominal Wall, Percutaneous Approach (ICD-10-PCS; principal; 2017-11-16)
DX: R18.8 Other ascites (principal)
CPT/HCPCS: 36415; 84520; 82565; 85027; 85610; 85730; 49083; P9047

== ENCOUNTER 2017-12-18 11:04 | Emergency (ER) | payer MEDICAID, OTHER ==
[2017-12-18] MEDS ORDERED: DEXTROSE 50%-WATER 25 GM/50 ML DISP.SYRIN IV ONE ×2 (11:22→12:12)
[2017-12-18] MEDS ORDERED: ONDANSETRON HCL INJ/PF 4 MG/2 ML SDV ONE (11:38)
[2017-12-18] MEDS ORDERED: DEXTROSE 5%-1/2 NORMAL SALINE 500 ML IV ONE (12:12)
[2017-12-18] MEDS ORDERED: ONDANSETRON HCL INJ/PF 4 MG/2 ML SDV IV ONE (12:12)
--- NOTE | 2017-12-18 12:43 | RADIOLOGY REPORT (SQ) ---
EXAM DESCRIPTION: CHEST SINGLE VIEW COMPLETED DATE/TIME: 12/18/2017 12:18 pm REASON FOR STUDY: bed 10 db COMPARISON: None. EXAM PARAMETERS: NUMBER OF VIEWS: One view. TECHNIQUE: Single frontal radiographic view of the chest acquired. RADIATION DOSE: NA LIMITATIONS: None. FINDINGS: LUNGS AND PLEURA: Basilar atelectasis with pleural effusions. MEDIASTINUM AND HILAR STRUCTURES: No masses. Contour normal. HEART AND VASCULAR STRUCTURES: Heart normal in size. Normal vasculature. BONES: No acute findings. HARDWARE: None in the chest. OTHER: No other significant finding. IMPRESSION: BASILAR ATELECTASIS WITH PLEURAL EFFUSIONS. TECHNICAL DOCUMENTATION: JOB ID: [id number] [employer]- All Rights Reserved
[2017-12-18 12:50] LABS: HEMATOCRIT 38.8 % (37.9-51.0); HEMOGLOBIN 13.3 g/dL (13.5-17.0); MEAN CORPUSCULAR HEMOGLOBIN 34.3 pg (27.0-33.4); MEAN CORPUSCULAR HGB CONC 34.4 g/dL (32.0-36.0); MEAN CORPUSCULAR VOLUME 100 fl (80-97); PLATELET COUNT 142 10^3/uL (150-450); RED BLOOD COUNT 3.89 10^6/uL (4.35-5.55); RED CELL DISTRIBUTION WIDTH 14.2 % (11.5-14.0)
[2017-12-18] MEDS ORDERED: LIDOCAINE 2% URO-JET 5 ML KIT MM ONE ×2 (12:52→12:59)
[2017-12-18 12:56] LABS: VENOUS BLOOD BASE EXCESS 0.8 mmol/L; VENOUS BLOOD HCO3 23.3 mmol/L (20-32); VENOUS BLOOD PCO2 30.9 mmHg (35-63); VENOUS BLOOD PH 7.5 (7.30-7.42)
[2017-12-18 12:59] LABS: INTERNATIONAL RATION (INR) 1.27; PROTHROMBIN TIME 16.8 SEC (11.4-15.4)
[2017-12-18 13:00] LABS: PARTIAL THROMBOPLASTIN TIME 31.6 SEC (23.5-35.8)
[2017-12-18 13:12] LABS: ABSOLUTE LYMPHOCYTES# (MANUAL) 0.7 10^3/uL (0.5-4.7); ABSOLUTE MONOCYTES # (MANUAL) 0.2 10^3/uL (0.1-1.4); ALANINE AMINOTRANSFERASE 86 U/L (21-72); ALBUMIN 2.7 g/dL (3.5-5.0); ALKALINE PHOSPHATASE 391 U/L (38-126); ANION GAP 18 (5-19); ASPARTATE AMINO TRANSFERASE 153 U/L (17-59); BASOPHILS % (MANUAL) 0 % (0-2); BILIRUBIN,DIRECT 1.2 mg/dL (0.0-0.4); BILIRUBIN,TOTAL 1.3 mg/dL (0.2-1.3); CALCIUM 9.2 mg/dL (8.4-10.2); CARBON DIOXIDE 23 mmol/L (22-30); CHLORIDE 86 mmol/L (98-107); CREATINE KINASE 56 U/L (55-170); EOSINOPHILS % (MANUAL) 0 % (0-6); GLUCOSE 183 mg/dL (75-110); LYMPHOCYTES % (MANUAL) 11 % (13-45); MONOCYTES % (MANUAL) 4 % (3-13); POTASSIUM 5.6 mmol/L (3.6-5.0); SEGMENTED NEUTROPHILS % (MAN) 84 % (42-78); SODIUM 127.1 mmol/L (137-145); TOTAL CELLS COUNTED 100; TOTAL PROTEIN 6.7 g/dL (6.3-8.2)
[2017-12-18 13:13] LABS: POIKILOCYTOSIS 1+
[2017-12-18 13:14] LABS: PLATELET COMMENT ADEQUATE; TARGET CELLS 1+
[2017-12-18 13:20] LABS: BLOOD UREA NITROGEN 144 mg/dL (7-20)
--- NOTE | 2017-12-18 13:37 | ER Document Report ---
ED General - General Chief Complaint: Pain Stated Complaint: WEAKNESS Time Seen by Provider: 12/18/17 12:01 Notes: The patient is a 57-year-old male, past medical history stage IV liver cancer, recurrent ascites, presents by EMS after he was having increased generalized weakness and shortness of breath. He feels like his ascites is worsening and his last paracentesis was about 1 month ago where he had 7 L tapped off. Pt receives intermittent oral chemo and is followed by Dr. Beck. Pt's accucheck on arrival by EMS was in the 30's. He was given an amp of D50 and his Accu-Chek improved to 71. Patient is not eating or drinking due to increased abdominal pain. TRAVEL OUTSIDE OF THE [place] IN LAST 30 DAYS: No - Related Data Allergies/Adverse Reactions: No Known Allergies Allergy (Verified 10/20/17 07:54) Past Medical History - General Information source: Patient, Relative - Daughter - Social History Smoking Status: Never Smoker Chew tobacco use (# tins/day): No Frequency of alcohol use: None Drug Abuse: None Family History: Reviewed & Not Pertinent Patient has suicidal ideation: No Patient has homicidal ideation: No - Past Medical History Cardiac Medical History: Denies: Hx Coronary Artery Disease, Hx Heart Attack, Hx Hypertension Pulmonary Medical History: Reports: Hx Asthma - Asthma Denies: Hx Bronchitis, Hx COPD, Hx Pneumonia Neurological Medical History: Denies: Hx Cerebrovascular Accident, Hx Seizures Renal/ Medical History: Denies: Hx Peritoneal Dialysis GI Medical History: Reports: Hx Cirrhosis Musculoskeltal Medical History: Denies Hx Arthritis Past Surgical History: Reports: Other - Paracentesis due to ascites from cirrhosis - Immunizations Hx Diphtheria, Pertussis, Tetanus Vaccination: - Unsure Review of Systems - Review of Systems Notes: REVIEW OF SYSTEMS: CONSTITUTIONAL: -fevers, -chills EENT: -eye pain, -difficulty swallowing, -nasal congestion CARDIOVASCULAR: -chest pain, -syncope. RESPIRATORY: -cough, +SOB GASTROINTESTINAL: +abdominal pain, -nausea, -vomiting, -diarrhea GENITOURINARY: -dysuria, -hematuria MUSCULOSKELETAL: -back pain, -neck pain SKIN: -rash or skin lesions. HEMATOLOGIC: -easy bruising or bleeding. LYMPHATIC: -swollen, enlarged glands. NEUROLOGICAL: -altered mental status or loss of consciousness, -headache, - neurologic symptoms PSYCHIATRIC: -anxiety, -depression. ALL OTHER SYSTEMS REVIEWED AND NEGATIVE. Physical Exam - Vital signs Vitals: Resp 23 H 12/18/17 11:12 - Notes Notes: PHYSICAL EXAMINATION: GENERAL: Cachectic-looking. No acute distress. HEAD: Atraumatic, normocephalic. EYES: Pupils equal round and reactive to light, extraocular movements intact, sclera icteric, conjunctiva are normal. ENT: nares patent, oropharynx clear without exudates. Moist mucous membranes. NECK: Normal range of motion, supple without lymphadenopathy LUNGS: Breath sounds clear to auscultation bilaterally and equal. No wheezes rales or rhonchi. HEART: Regular rate and rhythm without murmurs ABDOMEN: Diffuse swelling, tenderness over diffuse abdomen. EXTREMITIES: No swelling. NEUROLOGICAL: Somnolent, but will awaken. SKIN: Jaundiced skin. Course - Re-evaluation Re-evalutation: Patient with increasing abdominal distention, increased abdominal pain, hypoglycemia and some shortness of breath. He says that he gets relief with paracentesis and will help arrange this today. Patient is now found to be in new onset renal failure with mild hyperkalemia, but no EKG changes. Spoke to daughter and patient about severity of his disease and about the patient's wishes. Offered patient hospice and the patient and daughter agree. Patient is unsure whether he wants inpatient or home hospice at this time. Spoke to [employer] transmission builder and she is making calls to see if there are any available home hospice nurses. 12/18/17 13:53 Spoke to his Oncologist, Dr. Beck, and he agrees that hospice is a good option for the patient. He is sending his Hospice nurse to speak to the patient. IR is performing a therapeutic paracentesis to help with his dyspnea and comfort. - Vital Signs Vital signs: Temp Pulse Resp BP Pulse Ox 10 L 109/70 95 12/19/17 00:46 12/18/17 19:00 12/19/17 00:46 - Laboratory Result Diagrams: 12/18/17 12:30 12/18/17 12:30 Laboratory results interpreted by me: 12/18/17 12/18/17 12/18/17 11:17 12:30 12:30 RBC 3.89 L Hgb 13.3 L MCV 100 H MCH 34.3 H RDW 14.2 H Plt Count 142 L Seg Neuts % (Manual) 84 H Lymphocytes % (Manual) 11 L PT VBG pH VBG pCO2 Sodium 127.1 L Potassium 5.6 H Chloride 86 L BUN 144 H Creatinine 11.88 H Est GFR ( Amer) 5 L Est GFR (Non-Af Amer) 4 L Glucose 183 H POC Glucose < 30 L* Direct Bilirubin 1.2 H AST 153 H ALT 86 H Alkaline Phosphatase 391 H Ammonia Albumin 2.7 L Urine Protein Urine Blood 12/18/17 12/18/17 12/18/17 12:30 12:30 12:30 RBC Hgb MCV MCH RDW Plt Count Seg Neuts % (Manual) Lymphocytes % (Manual) PT 16.8 H VBG pH 7.50 H VBG pCO2 30.9 L Sodium Potassium Chloride BUN Creatinine Est GFR ( Amer) Est GFR (Non-Af Amer) Glucose POC Glucose Direct Bilirubin AST ALT Alkaline Phosphatase Ammonia < 8.7 L Albumin Urine Protein Urine Blood 12/18/17 12/18/17 13:31 13:37 RBC Hgb MCV MCH RDW Plt Count Seg Neuts % (Manual) Lymphocytes % (Manual) PT VBG pH VBG pCO2 Sodium Potassium Chloride BUN Creatinine Est GFR ( Amer) Est GFR (Non-Af Amer) Glucose POC Glucose 174 H Direct Bilirubin AST ALT Alkaline Phosphatase Ammonia Albumin Urine Protein 100 H Urine Blood SMALL H Critical Care Note - Critical Care Note Total time excluding time spent on procedures (mins): 35 Discharge - Discharge Clinical Impression: End stage liver disease, Hypoglycemia Acute on chronic kidney failure Qualifiers: Acute renal failure type: unspecified Chronic kidney disease stage: stage 5, not on chronic dialysis Qualified Code(s): N17.9 - Acute kidney failure, unspecified Ascites Qualifiers: Ascites type: other type Qualified Code(s): R18.8 - Other ascites Condition: Poor Disposition: HOME, SELF-CARE Additional Instructions: Kidney Failure When your kidneys no longer filter the blood adequately, we call this "kidney failure." While kidney failure can happen suddenly, usually it's the result of many years of slow damage. Kidneys can be injured by many different medical problems including infections, diabetes, high blood pressure, kidney stones, drug toxicity, and immune reactions. The symptoms of kidney failure do not develop until most of the normal kidney tissue has been lost. Early kidney failure usually has no symptoms. As it gets worse, symptoms can include weakness, confusion, high blood pressure, swelling, nausea, anemia, and itching. The seriousness of kidney failure is determined by measuring kidney function tests such as BUN or creatinine. The cause of kidney failure may be obvious from the medical history, but occasionally requires special tests such as an angiogram or kidney biopsy. Kidney failure can cause high blood pressure, and uncontrolled hypertension damages kidneys. Good control of blood pressure is important. If you have diabetes, good blood sugar control helps prevent further kidney damage. Fluid retention can be monitored by checking your weight daily. It's best to eat a diet low in protein, potassium, and salt. When kidney failure becomes severe, dialysis or kidney transplant may be required. Call the doctor or return if you develop significant weakness, repeated vomiting, severe lightheadedness, confusion, severe headache, or other serious change in your health. Referrals: DEDE BECK MD [ACTIVE STAFF] - Follow up as needed
[2017-12-18 13:53] LABS: AMORPHOUS SEDIMENT,URINE TRACE /HPF; APPEARANCE,URINE CLEAR; BILIRUBIN,URINE NEGATIVE (NEGATIVE); COLOR,URINE YELLOW; GLUCOSE, URINE NEGATIVE (NEGATIVE); KETONES,URINE NEGATIVE (NEGATIVE); LEUKOCYTE ESTERASE,URINE NEGATIVE (NEGATIVE); NITRITE,URINE NEGATIVE (NEGATIVE); PROTEIN,URINE 100 mg/dL (NEGATIVE); URINE SPECIFIC GRAVITY 1.011; UROBILINOGEN,URINE NEGATIVE mg/dL (<2.0)
[2017-12-18] MEDS ORDERED: HYDROMORPHONE HCL INJ/PF 2 MG/ML AMPULE IV PRN (14:01)
[2017-12-18] MEDS ORDERED: ONDANSETRON HCL INJ/PF 4 MG/2 ML SDV IV PRN (15:50)
[2017-12-18] MEDS ORDERED: LIDOCAINE 1% INJ-PF (10 MG/ML) 30 ML SDV ONE (16:13)
--- NOTE | 2017-12-18 17:25 | RADIOLOGY REPORT (SQ) ---
EXAM DESCRIPTION: U/S ABD PARACENTESIS COMPLETED DATE/TIME: 12/18/2017 5:13 pm REASON FOR STUDY: liver cancer, SOB, increasing abdominal distention COMPARISON: Ultrasound paracentesis 11/16/2017. LIMITATIONS: None. PROCEDURE: Procedure, risks, benefit, and alternative explained to patient who then gave written con sent. The right lower abdominal wall marked using ultrasound guidance. A time-out was called for co rrect marking verification. Abdomen prepped and draped using sterile technique. Local anesthesia ach ieved using for ml of 1% lidocaine injection. A 6fr Amca-F-Gomckiaw set was introduced into the rudy toneal cavity. Fluid was drained. The catheter was removed and entry site was covered with sterile bandage. No immediate complications noted. Patient will not be receiving albumin. Procedure was s topped at 6 L. Images acquired during the procedure were stored on PACS. FINDINGS: ENTRY SITE: Right lower FLUID VOLUME: 6000 mL FLUID ANALYSIS: Yellow straw-colored OTHER: Therapeutic only. IMPRESSION: SUCCESSFUL ULTRASOUND GUIDED PARACENTESIS. COMMENT: Patient medication list reviewed:Yes- Quality ID# [id number]:Eligible professional attests to docu menting in the medical record they obtained, updated, or reviewed the patient's current medications. TECHNICAL DOCUMENTATION: JOB ID: [id number] [employer]- All Rights Reserved
[2017-12-18 19:27] VITALS: BP 109/70
--- NOTE | 2017-12-19 09:08 | EKG REPORT ---
SEVERITY:- ABNORMAL ECG - SINUS RHYTHM NONSPECIFIC INTRAVENTRICULAR CONDUCTION DELAY LOW VOLTAGE IN FRONTAL LEADS : Confirmed by: Patrick Irvin 19-Dec-2017 09:08:00
== END 2017-12-18 19:33 | disposition home or self-care (01) ==
LOC: ER 11:04
DX: K72.90 Hepatic failure, unspecified without coma (principal); N17.9 Acute kidney failure, unspecified; R53.1 Weakness; E16.2 Hypoglycemia, unspecified; R18.8 Other ascites; R06.02 Shortness of breath; Z79.899 Other long term (current) drug therapy
CPT/HCPCS: 93005; 99291; 96361; 96374; 96375; 36415; 82962; 82140; 82550; 85025; 85610; 85730; 80053; 81001; 84484; 82803; 71045; 49083; 93010; J3490 ×3; J1170; J2405